=== PATIENT | male | born 1990 | race Caucasian/White ===

== ENCOUNTER 2018-12-28 13:43 | Outpatient (CLI) | payer OTHER ==
--- NOTE | 2018-12-28 17:39 | MRI ---
LUMBAR SPINE MRI WITHOUT CONTRAST: 12/28/18 COMPARISON: None. HISTORY: Low back pain extending into the right lower extremity. TECHNIQUE: Multiplanar and multisequence MRI imaging of the lumbar spine obtained without contrast. FINDINGS: The sagittal STIR imaging demonstrates no focal areas of osseous marrow edema. On the basis of five lumbar type vertebral bodies, the conus medullaris terminates at T12-L1. T12-L1: Intervertebral disc height and signal intensity within normal limits with no significant central canal or neural foraminal stenosis. L1-2: Intervertebral disc height and signal intensity within normal limits with no significant centra l canal or neural foraminal stenosis. L2-3: Intervertebral disc height and signal intensity within normal limits with no significant centra l canal or neural foraminal stenosis. L3-4: Intervertebral disc height and signal intensity within normal limits with no significant centra l canal or neural foraminal stenosis. L4-5: Intervertebral disc height and signal intensity within normal limits with no significant centra l canal or neural foraminal stenosis. L5-S1: There is mild disc desiccation and mild disc space narrowing. There is an associated annular t ear and small disc protrusion in the right paracentral region. There is minimal associated right late ral recess stenosis and right neural foraminal stenosis. No significant left neural foraminal stenosi s. The imaged retroperitoneal structures appear grossly unremarkable. IMPRESSION: Annular tear in the right paracentral region at L5-S1 with a very small associated disc protrusion. N o significant central canal stenosis. POS: [facility]
== END 2018-12-28 13:44 | disposition home or self-care (01) ==
LOC: SCSMRI 13:43
PROVIDERS: ATTEND Neurological Surgery
DX: M51.16 Intervertebral disc disorders with radiculopathy, lumbar region (principal); M51.27 Other intervertebral disc displacement, lumbosacral region; M51.87 Other intervertebral disc disorders, lumbosacral region
CPT/HCPCS: 72148

== ENCOUNTER 2020-07-25 13:46 | Outpatient (CLI) | payer BC | END 2020-07-25 13:47 | disposition home or self-care (01) | LOC: BICMRI 13:46 | PROVIDERS: ATTEND Orthopaedic Surgery | DX: M23.92 Unspecified internal derangement of left knee (principal) ==

== ENCOUNTER 2021-08-11 19:15 | Emergency (ER) | payer BC, OTHER ==
[2021-08-12 01:06] LABS: HBSAB Concentration Less than 8.00 mIU/mL; HIV (1/2) Antibody/Antigen Non-Reactive (NonReactive); HIV 1/2 INDEX 0.08 S/CO (<1.00); Hep B Surf AB Non-Reactive (NonReactive); Hep C IgG Ab Non-Reactive (NonReactive); Hep C Index 0.08 S/CO (0-0.79)
== END 2021-08-11 19:55 | disposition home or self-care (01) ==
LOC: ERS 19:15
DX: Z77.21 Contact with and (suspected) exposure to potentially hazardous body fluids (principal)
CPT/HCPCS: 86706; 86803; 87389

== ENCOUNTER 2021-11-30 11:44 | Emergency (ER) | payer OTHER ==
[2021-11-30] MEDS ORDERED: Ketorolac Tromethamine 30 MG/ML VIAL ONE (12:15)
== END 2021-11-30 13:07 | disposition home or self-care (01) ==
LOC: ERS 11:44
DX: S93.401A Sprain of unspecified ligament of right ankle, initial encounter (principal); X50.1XXA Overexertion from prolonged static or awkward postures, initial encounter; Y93.02 Activity, running
CPT/HCPCS: 96372; J1885

== ENCOUNTER 2021-12-30 13:25 | Outpatient (CLI) | payer OTHER | END 2021-12-30 13:26 | disposition home or self-care (01) | LOC: MRI 13:25 | PROVIDERS: ATTEND Nurse Practitioner Family | DX: S99.921D Unspecified injury of right foot, subsequent encounter (principal); S92.334A Nondisplaced fracture of third metatarsal bone, right foot, initial encounter for closed fracture; S90.01XA Contusion of right ankle, initial encounter ==